=== PATIENT | male | born 1950 | race African-American/Black ===

== ENCOUNTER 2019-05-19 22:46 | Emergency (ER) | payer MEDICARE, OTHER ==
[~2019-05-19] VITALS: Ht 177.8 cm; Wt 72.0 kg
[2019-05-19 23:45] LABS: CHLORIDE 105 mEq/L (98-107)
[2019-05-19 23:51] LABS: EOSINOPHILS % 3.2 % (0.0-5.0); HEMATOCRIT. 34.6 % (42.0-52.0); HEMOGLOBIN. 11.8 g/dL (14.0-18.0); LYMPHOCYTES % 24.4 % (20.0-50.0); MEAN CORPUSCULAR HEMOGLOBIN 28.8 pg (28.0-32.0); MEAN CORPUSCULAR VOLUME 84.1 fL (80.0-94.0); MEAN PLATELET VOLUME 7.3 fl (7.4-10.4); MONOCYTES % 7.6 % (2.0-8.0); NEUTROPHILS % 63.8 % (40.0-76.0); PLATELET 365 x1000/uL (130-400); RED BLOOD CELL COUNT 4.11 mill/uL (4.7-6.1); RED CELL DISTRIBUTION WIDTH 12.6 % (11.6-14.6)
[2019-05-20] MEDS ORDERED: IOHEXOL-350 100 ML BOTTLE ONE (01:56)
[2019-05-20 03:30] VITALS: BP 114/67
== END 2019-05-20 03:51 | disposition home or self-care (01) ==
LOC: ER 22:46 → CANBEDREQ 05-20 03:59
DX: I48.0 Paroxysmal atrial fibrillation (principal); Z79.01 Long term (current) use of anticoagulants; Z96.642 Presence of left artificial hip joint
CPT/HCPCS: 36415; 71045; 71275; 80053; 83880; 84443; 84484; 85025; 93005; 93970; 99284; Q9967